=== PATIENT | female | born 1950 | race Caucasian/White ===

== ENCOUNTER → 2019-10-30 | Outpatient (REF) | payer MEDICARE | LOC: M LAB REF 16:45 | PROVIDERS: ATTEND Nurse Practitioner Adult Health | DX: Z20.818 Contact with and (suspected) exposure to other bacterial communicable diseases (principal) ==

== ENCOUNTER → 2020-03-04 | Outpatient (CLI) | payer MEDICARE | LOC: M LABSMTC 11:31 | PROVIDERS: ATTEND Family Medicine | DX: Z11.59 Encounter for screening for other viral diseases (principal); Z20.828 Contact with and (suspected) exposure to other viral communicable diseases ==

== ENCOUNTER → 2022-09-29 | Outpatient (CLI) | payer MEDICARE | LOC: M WUC 15:32 | PROVIDERS: ATTEND Nurse Practitioner Adult Health | DX: M50.31 Other cervical disc degeneration, high cervical region (principal); M25.571 Pain in right ankle and joints of right foot ==

== ENCOUNTER → 2023-01-10 | Outpatient (CLI) | payer MEDICARE ==
[2023-01-10 15:54] LABS: BASO # 0.1 10^3/uL (0.0-0.2); BASO % 0.9 % (0.0-1.0); EOS # 0.2 10^3/uL (0.0-0.5); EOS % 3.7 % (0.0-3.0); HEMATOCRIT 41.3 % (36.0-47.0); HEMOGLOBIN 13.5 g/dl (12.0-15.5); LYMPH # 0.8 10^3/uL (1.5-5.0); LYMPH % 13.7 % (24.0-44.0); MEAN CORPUSCULAR HEMOGLOBIN 29.7 pg (27.0-33.0); MEAN CORPUSCULAR HGB CONC 32.7 g/dl (32.0-36.5); MONO # 0.4 10^3/uL (0.0-0.8); MONO % 7.5 % (2.0-8.0); NEUTROPHILS # 4.2 10^3/uL (1.5-8.5); NEUTROPHILS % 73.8 % (36.0-66.0); PLATELET COUNT, AUTOMATED 317 10^3/uL (150-450); RED BLOOD COUNT 4.54 10^6/uL (4.00-5.40); WHITE BLOOD COUNT 5.6 10^3/uL (4.0-10.0)
[2023-01-10 16:01] LABS: ERYTHROCYTE SEDIMENTATION RATE 7 mm/hr (0-30)
[2023-01-10 16:17] LABS: URIC ACID 5.5 MG/DL (3.1-7.8)
[2023-01-10 16:22] LABS: C REACTIVE PROTEIN QUANTITATIV < 0.40 MG/DL (<1.0)
[2023-01-10 16:24] LABS: RHEUMATOID FACTOR QUANT 4.4 IU/ML (<14)
== END ==
LOC: M PLALAB 13:48
PROVIDERS: ATTEND Physician Assistant
DX: S93.401A Sprain of unspecified ligament of right ankle, initial encounter (principal)

== ENCOUNTER → 2023-02-25 | Outpatient (CLI) | payer MEDICARE | LOC: M RAD 15:50 | PROVIDERS: ATTEND Physician Assistant | DX: M25.571 Pain in right ankle and joints of right foot (principal) ==

== ENCOUNTER → 2023-04-29 | Outpatient (REF) | payer MEDICARE | LOC: M LAB REF 12:32 | PROVIDERS: ATTEND Nurse Practitioner Family | DX: N39.0 Urinary tract infection, site not specified (principal) ==

== ENCOUNTER → 2023-05-09 | Outpatient (REF) | payer MEDICARE | LOC: M LAB REF 16:21 | PROVIDERS: ATTEND Nurse Practitioner Family | DX: N39.0 Urinary tract infection, site not specified (principal) ==

== ENCOUNTER → 2024-02-08 | Outpatient (CLI) | payer MEDICARE | LOC: M WUC 14:39 | PROVIDERS: ATTEND Nurse Practitioner Adult Health | DX: M54.50 Low back pain, unspecified (principal); M47.816 Spondylosis without myelopathy or radiculopathy, lumbar region; M47.817 Spondylosis without myelopathy or radiculopathy, lumbosacral region ==